=== PATIENT | female | born 1990 | race Caucasian/White ===

== ENCOUNTER 2020-05-06 11:30 | Inpatient (IN) | payer BC ==
[2020-05-06] MEDS ORDERED: Tranexamic Acid 1,000 MG in Sodium Chloride 0.9% 100 ML IV PRN (13:02)
[2020-05-06] MEDS ORDERED: Methylergonovine 0.2 MG/1 ML Amp IM PRN (13:02)
[2020-05-06] MEDS ORDERED: Sodium Chloride 0.9% 10 ML SDV IV PRN (13:02)
[2020-05-06] MEDS ORDERED: Misoprostol 200 MCG Tab PO PRN (13:02)
[2020-05-06] MEDS ORDERED: Nalbuphine 10 MG/1 ML Vial IVPUSH PRN (13:02)
[2020-05-06] MEDS ORDERED: Lidocaine 1% 50 ML MDV INJECT PRN (13:02)
[2020-05-06] MEDS ORDERED: Water For Irrigation,Sterile 1,000 ML Container IRR PRN (13:02)
[2020-05-06] MEDS ORDERED: Sodium Chloride 0.9% 2.5 ML Syringe FLUSH PRN (13:02)
[2020-05-06] MEDS ORDERED: Sodium Chloride 0.9% 10 ML Syringe FLUSH PRN (13:02)
[2020-05-06] MEDS ORDERED: Carboprost Tromethamine 250 MCG/1 ML Amp IM PRN (13:02)
[2020-05-06] MEDS ORDERED: Butorphanol 1 MG/ML SDV IVPUSH PRN (13:02)
[2020-05-06] MEDS ORDERED: Oxytocin/0.9 % Sodium Chloride 30 UNIT/500 ML BAG IV SCH ×2 (13:15→13:45)
[2020-05-06] MEDS ORDERED: Dinoprostone 10 MG Insert VAG PRN (13:34)
[2020-05-06] MEDS ORDERED: Terbutaline 1 MG/ML SDV SUBCUT PRN (13:34)
[2020-05-07] MEDS: Lactated Ringers 1,000 ML IV SCH ×4 (04:25→14:49)
[2020-05-07] MEDS ORDERED: Ropivacaine HCl/PF 100 ML ONE (06:47)
--- NOTE | 2020-05-07 07:18 | PCM.PREANE ---
Preanesthetic Assessment - Anesthesia/Transfusion/Family Hx Anesthesia History: Prior Anesthesia Without Reaction Family History of Anesthesia Reaction: No Transfusion History: No Prior Transfusion(s) - Review of Systems General: No Symptoms Pulmonary: No Symptoms Cardiovascular: No Symptoms Gastrointestinal: No Symptoms Neurological: No Symptoms Other: Reports: None - Physical Assessment Height: 5 ft 7 in Weight: 90.265 kg ASA Class: 2 Mental Status: Alert & Oriented x3 Airway Class: Mallampati = 2 Dentition: Reports: Normal Dentition Thyro-Mental Finger Breadths: 3 Mouth Opening Finger Breadths: 3 ROM/Head Extension: Full Lungs: Clear to Auscultation, Normal Respiratory Effort Cardiovascular: Regular Rate, Regular Rhythm - Lab Values: Laboratory Last Values WBC 11.38 K/uL (4.0-11.0) H 05/06/20 12:45 RBC 4.06 M/uL (4.30-5.90) L 05/06/20 12:45 Hgb 11.9 g/dL (12.0-16.0) L 05/06/20 12:45 Hct 34.7 % (36.0-46.0) L 05/06/20 12:45 MCV 85.5 fL (80.0-98.0) 05/06/20 12:45 MCH 29.3 pg (27.0-32.0) 05/06/20 12:45 MCHC 34.3 g/dL (31.0-37.0) 05/06/20 12:45 RDW Std Deviation 45.5 fl (28.0-62.0) 05/06/20 12:45 RDW Coeff of [place] 15 % (11.0-15.0) 05/06/20 12:45 Plt Count 280 K/uL (150-400) 05/06/20 12:45 MPV 11.30 fL (7.40-12.00) 05/06/20 12:45 Nucleated RBC % 0.0 /100WBC 05/06/20 12:45 Nucleated RBCs # 0 K/uL 05/06/20 12:45 Blood Type A POSITIVE 05/06/20 12:45 Antibody Screen NEGATIVE 05/06/20 12:45 - Allergies Allergies/Adverse Reactions: Allergies Allergy/AdvReac Type Severity Reaction Status Date / Time No Known Allergies Allergy Verified 09/14/16 12:43 - Acknowledgements Anesthesia Type Planned: Epidural Pt an Appropriate Candidate for the Planned Anesthesia: Yes Alternatives and Risks of Anesthesia Discussed w Pt/Guardian: Yes Pt/Guardian Understands and Agrees with Anesthesia Plan: Yes PreAnesthesia Questionnaire HEENT History: Reports: None Cardiovascular History: Reports: None Respiratory History: Reports: None Gastrointestinal History: Reports: None Genitourinary History: Reports: None 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: : 1 Para: 0 LMP (Approximate): Musculoskeletal History: Reports: Fracture Neurological History: Reports: Vertigo Psychiatric History: Reports: Anxiety, Panic Attack Endocrine/Metabolic History: Reports: None Hematologic History: Reports: None Immunologic History: Reports: None Oncologic (Cancer) History: Reports: Leukemia (as a child, no problem in adult art) Dermatologic History: Reports: None - Infectious Disease History Infectious Disease History: Reports: Chicken Pox, Novel Coronavirus, Shingles - Past Surgical History HEENT Surgical History: Reports: Adenoidectomy, LASIK, Tonsillectomy Cardiovascular Surgical History: Reports: Other (See Below) (Hx of Port-a-cath placement/removal) Respiratory Surgical History: Reports: None GI Surgical History: Reports: None Female Surgical History: Reports: None Musculoskeletal Surgical History: Reports: None - SUBSTANCE USE Tobacco Use Status *Q: Former Tobacco User Tobacco Use Within Last Twelve Months: Cigarettes Second Hand Smoke Exposure: No Recreational Drug Use History: No - HOME MEDS Home Medications: Home Meds Escitalopram Oxalate [Lexapro] 5 mg PO DAILY 05/06/20 [History] Famotidine [Pepcid] 20 mg PO DAILY 05/06/20 [History] Vit #76/Iron,Carb/Fa [Pnv 29-1 Tablet] 1 tab PO DAILY 05/06/20 [History] - CURRENT (IN HOUSE) MEDS Current Meds: Current Medications Butorphanol Tartrate (Stadol) 1 mg IVPUSH Q1H PRN PRN Reason: Pain Carboprost Tromethamine (Hemabate Ds) 250 mcg IM ASDIRECTED PRN PRN Reason: Post Hemorrhage Dinoprostone (Cervidil) 10 mg VAG ONETIME PRN PRN Reason: Cervical Ripening Last Admin: 05/06/20 14:58 Dose: 10 mg Documented by: Oxytocin/Sodium Chloride (Oxytocin 30 Unit/500 Ml-Ns) 30 unit in 500 mls @ 500 mls/hr IV TITRATE FAUSTO Tranexamic Acid 1,000 mg/ (Sodium Chloride) 110 mls @ 660 mls/hr IV ONETIME PRN PRN Reason: Bleeding Lactated Ringer's (Ringers, Lactated) 1,000 mls @ 150 mls/hr IV ASDIRECTED FAUSTO Last Admin: 05/07/20 04:25 Dose: 150 mls/hr Documented by: Oxytocin/Sodium Chloride (Oxytocin 30 Unit/500 Ml-Ns) 30 unit in 500 mls @ 2 mls/hr IV TITRATE FAUSTO; Protocol Last Titration: 05/07/20 05:40 Dose: 4 munits/min, 4 mls/hr Documented by: Lidocaine HCl (Xylocaine 1%) 50 ml INJECT ONETIME PRN PRN Reason: Laceration repair Methylergonovine Maleate (Methergine) 0.2 mg IM ASDIRECTED PRN PRN Reason: Post Hemorrhage Misoprostol (Cytotec) 200 mcg PO ONETIME PRN PRN Reason: Post Hemorrhage Nalbuphine HCl (Nubain) 10 mg IVPUSH Q1H PRN PRN Reason: Pain (severe 7-10) Sodium Chloride (Saline Flush) 10 ml FLUSH ASDIRECTED PRN PRN Reason: Keep Vein Open Sodium Chloride (Saline Flush) 2.5 ml FLUSH ASDIRECTED PRN PRN Reason: Keep Vein Open Sodium Chloride (Normal Saline) 10 ml IV ASDIRECTED PRN PRN Reason: IV Use Sterile Water (Sterile Water For Irrigation) 1,000 ml IRR ASDIRECTED PRN PRN Reason: delivery Terbutaline Sulfate (Brethine) 0.25 mg SUBCUT ASDIRECTED PRN PRN Reason: Tacysystole Discontinued Medications Ropivacaine (Naropin 0.2%) Confirm Administered Dose 100 mls @ as directed .ROUTE .[facility]-MED ONE Stop: 05/07/20 06:48
[2020-05-07] MEDS ORDERED: Bupivacaine 0.25% 10 ML SDV ONE (07:37)
[2020-05-07] MEDS ORDERED: Ondansetron 4 MG/2 ML SDV IVPUSH PRN (07:40)
[2020-05-07] MEDS ORDERED: Bupivacaine 0.5% 10 ML SDV ONE ×2 (08:55→11:21)
[2020-05-07] MEDS ORDERED: fentaNYL 100 MCG/2 ML SDV ONE (08:55)
[2020-05-07] MEDS ORDERED: Sodium Chloride 0.9% 1,000 ML IRR SCH (11:15)
[2020-05-07] MEDS ORDERED: Benzocaine/Menthol 20%-0.5% Spray 78 GM Cannister TOP PRN (18:09)
[2020-05-07] MEDS ORDERED: Bisacodyl 10 MG Supp RECTAL PRN (18:09)
[2020-05-07] MEDS ORDERED: Docusate Sodium 100 MG Cap PO PRN (18:09)
[2020-05-07] MEDS ORDERED: Witch Hazel Medicated Pads 40/Jar TOP PRN (18:09)
[2020-05-07] MEDS ORDERED: Lanolin 100% Cream 7 GM Tube TOP PRN (18:09)
[2020-05-07] MEDS ORDERED: oxyCODONE 5 MG Tab PO PRN (18:09)
--- NOTE | 2020-05-07 18:18 | PCM.DEL ---
<Beatrice Mendoza - Last Filed: 05/07/20 18:09> L & D Note - General Info Date of Service: 05/07/20 Mother's Due Date: 05/01/20 - Delivery Note Labor: Induced by ARM, Induced by Oxytocin Cervical Ripening Method: Prostaglandin E2 Delivery Outcome: Livebirth Delivery Method: Spontaneous Vaginal Delivery-Single Presentation: Left Occiput Anterior (ROSSANA) Nuchal Cord: Present, Reduced Anesthesia Type: Epidural, Local, Pudendal Anesthetic: Lidocaine (Xylocaine) 1% Plain Local Anesthetic Volume: Other (30) Amniotic Fluid Description: Meconium Stained (terminal meconium) Laceration: 2nd Degree, Perineal Suture type: Vicryl Suture size: 2-0 Placenta: Intact, Spontaneous Cord: 3 Vessels Estimated Blood Loss: 350 Resuscitation Needed: Yes [place]: Suctioned, Bulb Syringe, Stimulated, Warmed Score 1 min: 6 Score 5 min: 9 - General Info Date of Service: 05/07/20 Functional Status: Reports: Pain Controlled - Review of Systems General: Reports: No Symptoms HEENT: Reports: No Symptoms Pulmonary: Reports: No Symptoms Cardiovascular: Reports: No Symptoms Gastrointestinal: Reports: No Symptoms Genitourinary: Reports: No Symptoms Musculoskeletal: Reports: No Symptoms Skin: Reports: No Symptoms Neurological: Reports: No Symptoms Psychiatric: Reports: No Symptoms - Patient Data Weight - Most Recent: 90.265 kg Med Orders - Current: Current Medications Butorphanol Tartrate (Stadol) 1 mg IVPUSH Q1H PRN PRN Reason: Pain Carboprost Tromethamine (Hemabate Ds) 250 mcg IM ASDIRECTED PRN PRN Reason: Post Hemorrhage Dinoprostone (Cervidil) 10 mg VAG ONETIME PRN PRN Reason: Cervical Ripening Last Admin: 05/06/20 14:58 Dose: 10 mg Documented by: Sodium Chloride (Normal Saline) 1,000 mls @ 500 mls/hr IRR ASDIRECTED FAUSTO Last Infusion: 05/07/20 11:50 Dose: 250 mls/hr Documented by: Oxytocin/Sodium Chloride (Oxytocin 30 Unit/500 Ml-Ns) 30 unit in 500 mls @ 500 mls/hr IV TITRATE FAUSTO Tranexamic Acid 1,000 mg/ (Sodium Chloride) 110 mls @ 660 mls/hr IV ONETIME PRN PRN Reason: Bleeding Lactated Ringer's (Ringers, Lactated) 1,000 mls @ 150 mls/hr IV ASDIRECTED FAUSTO Last Admin: 05/07/20 14:49 Dose: 150 mls/hr Documented by: Oxytocin/Sodium Chloride (Oxytocin 30 Unit/500 Ml-Ns) 30 unit in 500 mls @ 2 mls/hr IV TITRATE FAUSTO; Protocol Last Titration: 05/07/20 14:03 Dose: 4 munits/min, 4 mls/hr Documented by: Lidocaine HCl (Xylocaine 1%) 50 ml INJECT ONETIME PRN PRN Reason: Laceration repair Methylergonovine Maleate (Methergine) 0.2 mg IM ASDIRECTED PRN PRN Reason: Post Hemorrhage Misoprostol (Cytotec) 200 mcg PO ONETIME PRN PRN Reason: Post Hemorrhage Nalbuphine HCl (Nubain) 10 mg IVPUSH Q1H PRN PRN Reason: Pain (severe 7-10) Ondansetron HCl (Zofran) 4 mg IVPUSH Q6H PRN PRN Reason: Nausea/Vomiting Last Admin: 05/07/20 09:17 Dose: 4 mg Documented by: Sodium Chloride (Saline Flush) 10 ml FLUSH ASDIRECTED PRN PRN Reason: Keep Vein Open Sodium Chloride (Saline Flush) 2.5 ml FLUSH ASDIRECTED PRN PRN Reason: Keep Vein Open Sodium Chloride (Normal Saline) 10 ml IV ASDIRECTED PRN PRN Reason: IV Use Sterile Water (Sterile Water For Irrigation) 1,000 ml IRR ASDIRECTED PRN PRN Reason: delivery Terbutaline Sulfate (Brethine) 0.25 mg SUBCUT ASDIRECTED PRN PRN Reason: Tacysystole Discontinued Medications Bupivacaine HCl (Sensorcaine-Mpf 0.25%) Confirm Administered Dose 10 ml .ROUTE .STK-MED ONE Stop: 05/07/20 07:38 Bupivacaine HCl (Sensorcaine-Mpf 0.5%) Confirm Administered Dose 10 ml .ROUTE .STK-MED ONE Stop: 05/07/20 08:56 Bupivacaine HCl (Sensorcaine-Mpf 0.5%) Confirm Administered Dose 10 ml .ROUTE .STK-MED ONE Stop: 05/07/20 11:22 Fentanyl (Sublimaze) Confirm Administered Dose 100 mcg .ROUTE .STK-MED ONE Stop: 05/07/20 08:56 Ropivacaine (Naropin 0.2%) Confirm Administered Dose 100 mls @ as directed .ROUTE .STK-MED ONE Stop: 05/07/20 06:48 Last Admin: 05/07/20 07:44 Dose: Not Given Documented by: Fentanyl/Bupivacaine HCl (Ridikrbz-Tesxi-Jq 2 Mcg/Ml-0.125%) Confirm Administered Dose 100 mls @ as directed .ROUTE .STK-MED ONE Stop: 05/07/20 16:17 - Exam General: Alert, Oriented HEENT: Pupils Equal, Pupils Reactive, EOMI, Mucous Membr. Moist/[place] Neck: Supple Lungs: Clear to Auscultation, Normal Respiratory Effort Cardiovascular: Regular Rate, Regular Rhythm GI/Abdominal Exam: Soft, No Organomegaly, No Distention, No Mass, Other (appropriately tender) (Female) Exam: Other (2nd degree perineal laceration repaired) Back Exam: Normal Inspection, Full Range of Motion Extremities: Normal Inspection, Normal Range of Motion, Non-Tender, No Pedal Edema, Normal Capillary Refill Skin: Warm, Dry, Intact Wound/Incisions: Healing Well Neurological: No New Focal Deficit Psy/Mental Status: Alert, Normal Affect, Normal Mood - Problem List & Annotations (1) Vaginal delivery SNOMED Code(s): 857169354 Code(s): O80 - ENCOUNTER FOR FULL-TERM UNCOMPLICATED DELIVERY Status: Acute Current Visit: Yes Onset Date: ~05/07/20 - Problem List Review Problem List Initiated/Reviewed/Updated: Yes - Assessment Assessment:: 40+6 week , now , induced for post dates and oligohydramnios delivered viable male , apgars 6 & 9. Cervidil placed 05/06/20 with progression to pitocin and AROM and cervical dilation to complete. Double nuchal cord was present and successfully reduced. 2nd degree perineal laceration present and repaired with 2-0 vicryl. Mom and baby both in stable condition. - Plan Plan:: 1. Routine pp cares <Meme Wiley - Last Filed: 05/07/20 18:27> L & D Note - Delivery Note Nuchal Cord: Present (x2) Amniotic Fluid Description: Meconium Stained - Patient Data Lab Results Last 24 Hours: Laboratory Results - last 24 hr 05/07/20 05/07/20 Range/Units 17:38 17:38 Cord ABG pH 7.348 (7.18-7.38) Cord ABG Base Excess -8 (-10--2) Cord VBG pH 7.266 (7.25-7.45) Cord VBG Base Excess -8 (-10--2) Med Orders - Current: Current Medications Acetaminophen (Tylenol Extra Strength) 1,000 mg PO Q6H PRN PRN Reason: Pain Benzocaine/Menthol (Dermoplast Pain Relief 20%-0.5% [place]) 78 gm TOP ASDIRECTED PRN PRN Reason: Perineal Comfort Measure Bisacodyl (Dulcolax) 10 mg RECTAL ONETIME PRN PRN Reason: Constipation Butorphanol Tartrate (Stadol) 1 mg IVPUSH Q1H PRN PRN Reason: Pain Carboprost Tromethamine (Hemabate Ds) 250 mcg IM ASDIRECTED PRN PRN Reason: Post Hemorrhage Dinoprostone (Cervidil) 10 mg VAG ONETIME PRN PRN Reason: Cervical Ripening Last Admin: 05/06/20 14:58 Dose: 10 mg Documented by: Docusate Sodium (Colace) 100 mg PO BID PRN PRN Reason: Constipation Emollient Ointment (Lansinoh Hpa) 0 gm TOP ASDIRECTED PRN PRN Reason: Sore Nipples Escitalopram Oxalate (Lexapro) 5 mg PO DAILY FAUSTO Famotidine (Pepcid) 20 mg PO DAILY FAUSTO Sodium Chloride (Normal Saline) 1,000 mls @ 500 mls/hr IRR ASDIRECTED [facility] Last Infusion: 05/07/20 11:50 Dose: 250 mls/hr Documented by: Oxytocin/Sodium Chloride (Oxytocin 30 Unit/500 Ml-Ns) 30 unit in 500 mls @ 500 mls/hr IV TITRATE FAUSTO Tranexamic Acid 1,000 mg/ (Sodium Chloride) 110 mls @ 660 mls/hr IV ONETIME PRN PRN Reason: Bleeding Lactated Ringer's (Ringers, Lactated) 1,000 mls @ 150 mls/hr IV ASDIRECTED [facility] Last Admin: 05/07/20 14:49 Dose: 150 mls/hr Documented by: Oxytocin/Sodium Chloride (Oxytocin 30 Unit/500 Ml-Ns) 30 unit in 500 mls @ 2 mls/hr IV TITRATE FAUSTO; Protocol Last Titration: 05/07/20 14:03 Dose: 4 munits/min, 4 mls/hr Documented by: Ibuprofen (Motrin) 800 mg PO Q8H PRN PRN Reason: Pain Lidocaine HCl (Xylocaine 1%) 50 ml INJECT ONETIME PRN PRN Reason: Laceration repair Methylergonovine Maleate (Methergine) 0.2 mg IM ASDIRECTED PRN PRN Reason: Post Hemorrhage Misoprostol (Cytotec) 200 mcg PO ONETIME PRN PRN Reason: Post Hemorrhage Nalbuphine HCl (Nubain) 10 mg IVPUSH Q1H PRN PRN Reason: Pain (severe 7-10) Ondansetron HCl (Zofran) 4 mg IVPUSH Q6H PRN PRN Reason: Nausea/Vomiting Last Admin: 05/07/20 09:17 Dose: 4 mg Documented by: Oxycodone HCl (Oxycodone) 5 mg PO Q2H PRN PRN Reason: Pain Sodium Chloride (Saline Flush) 10 ml FLUSH ASDIRECTED PRN PRN Reason: Keep Vein Open Sodium Chloride (Saline Flush) 2.5 ml FLUSH ASDIRECTED PRN PRN Reason: Keep Vein Open Sodium Chloride (Normal Saline) 10 ml IV ASDIRECTED PRN PRN Reason: IV Use Sterile Water (Sterile Water For Irrigation) 1,000 ml IRR ASDIRECTED PRN PRN Reason: delivery Terbutaline Sulfate (Brethine) 0.25 mg SUBCUT ASDIRECTED PRN PRN Reason: Tacysystole Witch Vanessa (Tucks) 1 pad TOP ASDIRECTED PRN PRN Reason: comfort care Discontinued Medications Bupivacaine HCl (Sensorcaine-Mpf 0.25%) Confirm Administered Dose 10 ml .ROUTE .STK-MED ONE Stop: 05/07/20 07:38 Bupivacaine HCl (Sensorcaine-Mpf 0.5%) Confirm Administered Dose 10 ml .ROUTE .STK-MED ONE Stop: 05/07/20 08:56 Bupivacaine HCl (Sensorcaine-Mpf 0.5%) Confirm Administered Dose 10 ml .ROUTE .STK-MED ONE Stop: 05/07/20 11:22 Fentanyl (Sublimaze) Confirm Administered Dose 100 mcg .ROUTE .STK-MED ONE Stop: 05/07/20 08:56 Ropivacaine (Naropin 0.2%) Confirm Administered Dose 100 mls @ as directed .ROUTE .STK-MED ONE Stop: 05/07/20 06:48 Last Admin: 05/07/20 07:44 Dose: Not Given Documented by: Fentanyl/Bupivacaine HCl (Pwxmyefb-Kaclx-Hm 2 Mcg/Ml-0.125%) Confirm Administered Dose 100 mls @ as directed .ROUTE .STK-MED ONE Stop: 05/07/20 16:17 - Problem List & Annotations (1) Vaginal delivery SNOMED Code(s): 416189612 Code(s): O80 - ENCOUNTER FOR FULL-TERM UNCOMPLICATED DELIVERY Status: Acute Current Visit: Yes Onset Date: ~05/07/20 - My Orders Last 24 Hours: My Active Orders 05/07/20 11:15 Sodium Chloride 0.9% [Normal Saline] 1,000 ml IRR ASDIRECTED 05/07/20 Dinner Regular Diet [DIET] 05/07/20 18:09 Notify Provider Vital Signs [RC] ASDIRECTED Acetaminophen [Tylenol Extra Strength] 1,000 mg PO Q6H PRN Benzocaine/Menthol [Dermoplast Pain Relief 20%-0.5% [place]] 78 gm TOP ASDIRECTED PRN Docusate Sodium [Colace] 100 mg PO BID PRN Ibuprofen [Motrin] 800 mg PO Q8H PRN Lanolin [Lansinoh HPA] See Dose Instructions TOP ASDIRECTED PRN bisacodyL [Dulcolax] 10 mg RECTAL ONETIME PRN oxyCODONE 5 mg PO Q2H PRN witch Vanessa [Tucks] 1 pad TOP ASDIRECTED PRN Breast Pump [WOMSER] Per Unit Routine 05/07/20 18:11 Patient Status [ADT] Routine May Shower [RC] ASDIRECTED Up ad Natividad [RC] ASDIRECTED Vital Signs [RC] PER UNIT ROUTINE Assess Lochia [WOMSER] Per Unit Routine Assess Uterine Involution [WOMSER] Per Unit Routine Peripheral IV Discontinue [OM.PC] Routine 05/07/20 18:12 Ice Therapy [OM.PC] Per Unit Routine Perineal Care [OM.PC] Per Unit Routine Sitz Bath [OM.PC] Per Unit Routine 05/07/20 18:13 Cooling Warming Measures [RC] ASDIRECTED 05/08/20 05:11 HEMOGLOBIN/HEMATOCRIT,HH [HEME] Timed 05/08/20 09:00 Escitalopram [Lexapro] 5 mg PO DAILY Famotidine [Pepcid] 20 mg PO DAILY - Assessment Assessment:: Weight 3120g Pudendal nerve block with 10mL lidocaine bilaterally. I have reviewed and agree with the above.
[2020-05-07] MEDS: Ibuprofen 800 MG Tab PO PRN (21:02)
--- NOTE | 2020-05-08 02:09 | OR ---
SURGEON: Meem Wiley MD DATE OF PROCEDURE: 05/07/2020 PREOPERATIVE DIAGNOSES: 1. A 29-year-old 1, para 0, at 40 weeks and 5 days' gestation. 2. Oligohydramnios. 3. Group B streptococcus negative. 4. COVID positive. 5. left ventricular echogenic focus. POSTOPERATIVE DIAGNOSES: 1. A 29-year-old 1, para 1-0-0-1, at 40 weeks and 6 days' gestation. 2. Oligohydramnios. 3. Group B streptococcus negative. 4. COVID positive. 5. left ventricular echogenic focus. 6. Second-degree perineal laceration. PROCEDURE: 1. Spontaneous vaginal delivery. 2. Repair of second-degree perineal laceration. 3. Bilateral pudendal nerve block. ANESTHESIA: Epidural and local. ESTIMATED BLOOD LOSS: 250 mL. FINDINGS: Live male , cephalic presentation. Nuchal cord x2. scores 6 and 9 at one and five minutes respectively. Weight 3120 g. Second-degree perineal laceration. Three-vessel cord. Intact placenta. INDICATIONS: A 29-year-old G1, P0, who presented at 40 weeks and 5 days' gestation from clinic for induction of labor due to oligohydramnios. She was being monitored due to post due date. Upon presentation, her cervix was found to be 1 cm dilated. Cervidil was placed. After approximately 12 hours, Cervidil was removed, and she was 2 to 3 cm dilated. Pitocin was begun for augmentation of labor. At 3 cm dilated, she underwent artificial rupture of membranes with clear fluid noted. An IUPC was placed. She received an epidural for pain control. She progressed to complete cervical dilation and began pushing. DESCRIPTION OF PROCEDURE: I arrived to the room with the cervix completely dilated and the infant's head at +2 station. The patient was complaining of perineal pain that was not controlled by her epidural. A pudendal nerve block was performed by injecting 10 mL of lidocaine bilaterally at the pudendal nerves, approximately 1 cm proximal and superior to the ischial spines. The patient continued to push with good descent of the head. She then delivered a live male infant. The head was delivered followed quickly by the shoulders and the remainder of the body. Nuchal cord x2 was reduced after delivery of the body. The infant was placed on the maternal abdomen. After approximately 30 seconds, the cord clamped and cut. The infant was taken to the warmer for evaluation by nursing staff. The placenta then delivered intact with a 3-vessel cord. The perineum was inspected, and a second-degree perineal laceration was noted. This was infiltrated with 1% lidocaine, and then repaired to anatomy and hemostasis with 2-0 Vicryl. The fundus was firm below the umbilicus. The patient and infant tolerated the delivery well. [id number] / MODL /[id number] MTDD
[2020-05-08] MEDS: Acetaminophen 500 MG Tab PO PRN ×2 (03:12→13:38)
[2020-05-08] MEDS: Ibuprofen 800 MG Tab PO PRN (08:13)
[2020-05-08] MEDS ORDERED: Famotidine 20 MG Tab PO SCH (09:00)
[2020-05-08] MEDS ORDERED: Escitalopram 10 MG Tab PO SCH (09:00)
--- NOTE | 2020-05-08 09:18 | PCM.PNPP ---
- General Info Date of Service: 05/08/20 Subjective Update: Patient doing very well. Mild cramping, mainly with . Bleeding similar to moderate period. Tolerating oral intake. Functional Status: Reports: Pain Controlled, Tolerating Diet, Ambulating, Urinating - Review of Systems General: Reports: No Symptoms HEENT: Reports: No Symptoms Pulmonary: Reports: No Symptoms Cardiovascular: Reports: No Symptoms Gastrointestinal: Reports: No Symptoms Genitourinary: Reports: No Symptoms Musculoskeletal: Reports: No Symptoms Skin: Reports: No Symptoms Neurological: Reports: No Symptoms Psychiatric: Reports: No Symptoms - Patient Data Vital Signs - Most Recent: Last Vital Signs Temp 36.1 C 05/08/20 08:00 Pulse 87 05/08/20 08:00 Resp 16 05/08/20 08:00 BP 118/61 05/08/20 08:00 Pulse Ox 95 05/08/20 08:00 Weight - Most Recent: 90.265 kg Lab Results - Last 24 Hours: Laboratory Results - last 24 hr 05/07/20 05/07/20 05/08/20 Range/Units 17:38 17:38 06:03 Hgb 10.6 L (12.0-16.0) g/dL Hct 31.1 L (36.0-46.0) % Cord ABG pH 7.348 (7.18-7.38) Cord ABG Base Excess -8 (-10--2) Cord VBG pH 7.266 (7.25-7.45) Cord VBG Base Excess -8 (-10--2) Med Orders - Current: Current Medications Acetaminophen (Tylenol Extra Strength) 1,000 mg PO Q6H PRN PRN Reason: Pain Last Admin: 05/08/20 03:12 Dose: 1,000 mg Documented by: Benzocaine/Menthol (Dermoplast Pain Relief 20%-0.5% [place]) 78 gm TOP ASDIRECTED PRN PRN Reason: Perineal Comfort Measure Last Admin: 05/07/20 21:01 Dose: 1 canister Documented by: Bisacodyl (Dulcolax) 10 mg RECTAL ONETIME PRN PRN Reason: Constipation Butorphanol Tartrate (Stadol) 1 mg IVPUSH Q1H PRN PRN Reason: Pain Carboprost Tromethamine (Hemabate Ds) 250 mcg IM ASDIRECTED PRN PRN Reason: Post Hemorrhage Dinoprostone (Cervidil) 10 mg VAG ONETIME PRN PRN Reason: Cervical Ripening Last Admin: 05/06/20 14:58 Dose: 10 mg Documented by: Docusate Sodium (Colace) 100 mg PO BID PRN PRN Reason: Constipation Last Admin: 05/07/20 21:04 Dose: 100 mg Documented by: Emollient Ointment (Lansinoh Hpa) 0 gm TOP ASDIRECTED PRN PRN Reason: Sore Nipples Last Admin: 05/07/20 21:02 Dose: 7 gm Documented by: Escitalopram Oxalate (Lexapro) 5 mg PO DAILY FAUSTO Famotidine (Pepcid) 20 mg PO DAILY FAUSTO Sodium Chloride (Normal Saline) 1,000 mls @ 500 mls/hr IRR ASDIRECTED FAUSTO Last Infusion: 05/07/20 11:50 Dose: 250 mls/hr Documented by: Oxytocin/Sodium Chloride (Oxytocin 30 Unit/500 Ml-Ns) 30 unit in 500 mls @ 500 mls/hr IV TITRATE FAUSTO Tranexamic Acid 1,000 mg/ (Sodium Chloride) 110 mls @ 660 mls/hr IV ONETIME PRN PRN Reason: Bleeding Lactated Ringer's (Ringers, Lactated) 1,000 mls @ 150 mls/hr IV ASDIRECTED FAUSTO Last Admin: 05/07/20 14:49 Dose: 150 mls/hr Documented by: Oxytocin/Sodium Chloride (Oxytocin 30 Unit/500 Ml-Ns) 30 unit in 500 mls @ 2 mls/hr IV TITRATE FAUSTO; Protocol Last Titration: 05/07/20 17:40 Dose: 500 munits/min, 500 mls/hr Documented by: Ibuprofen (Motrin) 800 mg PO Q8H PRN PRN Reason: Pain Last Admin: 05/08/20 08:13 Dose: 800 mg Documented by: Lidocaine HCl (Xylocaine 1%) 50 ml INJECT ONETIME PRN PRN Reason: Laceration repair Methylergonovine Maleate (Methergine) 0.2 mg IM ASDIRECTED PRN PRN Reason: Post Hemorrhage Misoprostol (Cytotec) 200 mcg PO ONETIME PRN PRN Reason: Post Hemorrhage Nalbuphine HCl (Nubain) 10 mg IVPUSH Q1H PRN PRN Reason: Pain (severe 7-10) Ondansetron HCl (Zofran) 4 mg IVPUSH Q6H PRN PRN Reason: Nausea/Vomiting Last Admin: 05/07/20 09:17 Dose: 4 mg Documented by: Oxycodone HCl (Oxycodone) 5 mg PO Q2H PRN PRN Reason: Pain Sodium Chloride (Saline Flush) 10 ml FLUSH ASDIRECTED PRN PRN Reason: Keep Vein Open Sodium Chloride (Saline Flush) 2.5 ml FLUSH ASDIRECTED PRN PRN Reason: Keep Vein Open Sodium Chloride (Normal Saline) 10 ml IV ASDIRECTED PRN PRN Reason: IV Use Sterile Water (Sterile Water For Irrigation) 1,000 ml IRR ASDIRECTED PRN PRN Reason: delivery Terbutaline Sulfate (Brethine) 0.25 mg SUBCUT ASDIRECTED PRN PRN Reason: Tacysystole Witch Na (Tucks) 1 pad TOP ASDIRECTED PRN PRN Reason: comfort care Last Admin: 05/07/20 21:01 Dose: 1 tub Documented by: Discontinued Medications Bupivacaine HCl (Sensorcaine-Mpf 0.25%) Confirm Administered Dose 10 ml .ROUTE .STK-MED ONE Stop: 05/07/20 07:38 Bupivacaine HCl (Sensorcaine-Mpf 0.5%) Confirm Administered Dose 10 ml .ROUTE .STK-MED ONE Stop: 05/07/20 08:56 Bupivacaine HCl (Sensorcaine-Mpf 0.5%) Confirm Administered Dose 10 ml .ROUTE .STK-MED ONE Stop: 05/07/20 11:22 Fentanyl (Sublimaze) Confirm Administered Dose 100 mcg .ROUTE .STK-MED ONE Stop: 05/07/20 08:56 Ropivacaine (Naropin 0.2%) Confirm Administered Dose 100 mls @ as directed .ROUTE .STK-MED ONE Stop: 05/07/20 06:48 Last Admin: 05/07/20 07:44 Dose: Not Given Documented by: Fentanyl/Bupivacaine HCl (Lvcxzpbe-Noizv-Ni 2 Mcg/Ml-0.125%) Confirm Administered Dose 100 mls @ as directed .ROUTE .STK-MED ONE Stop: 05/07/20 16:17 - Infant Interaction Infant Disposition, : [place] in Room with Family Infant Feeding: Breastfed ; Nursed Well Support Person: - Recovery Exam Fundal Tone: Firm Fundal Level: At Umbilicus Fundal Placement: Midline Lochia Amount: Small Lochia Color: Rubra/Red Other Perinuem Description: 2nd degree laceration, repaired Bladder Status: Voiding Urinary Elimination: Voided - Exam General: Alert, Oriented Neck: Supple Lungs: Normal Respiratory Effort GI/Abdominal Exam: Soft, Non-Tender, No Distention Extremities: No Pedal Edema Skin: Warm, Dry, Intact Neurological: No New Focal Deficit Psy/Mental Status: Alert, Normal Affect, Normal Mood - Problem List & Annotations (1) Vaginal delivery SNOMED Code(s): 602186424 Code(s): O80 - ENCOUNTER FOR FULL-TERM UNCOMPLICATED DELIVERY Status: Acute Current Visit: Yes Onset Date: ~05/07/20 - Problem List Review Problem List Initiated/Reviewed/Updated: Yes - My Orders Last 24 Hours: My Active Orders 05/07/20 11:15 Sodium Chloride 0.9% [Normal Saline] 1,000 ml IRR ASDIRECTED 05/07/20 Dinner Regular Diet [DIET] 05/07/20 18:09 Acetaminophen [Tylenol Extra Strength] 1,000 mg PO Q6H PRN Benzocaine/Menthol [Dermoplast Pain Relief 20%-0.5% [place]] 78 gm TOP ASDIRECTED PRN Docusate Sodium [Colace] 100 mg PO BID PRN Ibuprofen [Motrin] 800 mg PO Q8H PRN Lanolin [Lansinoh HPA] See Dose Instructions TOP ASDIRECTED PRN bisacodyL [Dulcolax] 10 mg RECTAL ONETIME PRN oxyCODONE 5 mg PO Q2H PRN witch Na [Tucks] 1 pad TOP ASDIRECTED PRN Breast Pump [WOMSER] Per Unit Routine 05/07/20 18:11 Patient Status [ADT] Routine May Shower [RC] ASDIRECTED Assess Lochia [WOMSER] Per Unit Routine Assess Uterine Involution [WOMSER] Per Unit Routine Peripheral IV Discontinue [OM.PC] Routine 05/07/20 18:12 Ice Therapy [OM.PC] Per Unit Routine Perineal Care [OM.PC] Per Unit Routine Sitz Bath [OM.PC] Per Unit Routine 05/08/20 09:00 Escitalopram [Lexapro] 5 mg PO DAILY Famotidine [Pepcid] 20 mg PO DAILY 05/08/20 09:15 Ready for Discharge [RC] PER UNIT ROUTINE - Assessment Assessment:: 29yo s/p at 40w6d, PPD#1 - Plan Plan:: Patient desires discharge home today if cleared by [facility]. Reviewed discharge instructions/precautions. Continue Lexapro. Reviewed blues versus depression/anxiety. All questions answered.
--- NOTE | 2020-05-08 13:36 | PCM48HPAN ---
Post Anesthesia Note - EVALUATION WITHIN 48HRS OF ANESTHETIC Vital Signs in Normal Range: Yes Patient Participated in Evaluation: Yes Respiratory Function Stable: Yes Airway Patent: Yes Cardiovascular Function Stable: Yes Hydration Status Stable: Yes Pain Control Satisfactory: Yes Nausea and Vomiting Control Satisfactory: Yes Mental Status Recovered: Yes Vital Signs: Last Vital Signs Temp 36.1 C 05/08/20 08:00 Pulse 87 05/08/20 08:00 Resp 16 05/08/20 08:00 BP 118/61 05/08/20 08:00 Pulse Ox 95 05/08/20 08:00
== END 2020-05-08 19:39 | disposition home or self-care (01) | DRG 560 ==
LOC: MW.OBCHECK 11:30 → MW.OB 13:01 → MW.OBCHECK 13:02 → MW.OB 13:02 → OBSVTOIN 05-07 17:38 → MW.OB 05-07 21:30
PROVIDERS: ADMIT Obstetrics & Gynecology; ATTEND Obstetrics & Gynecology
PROC: 10E0XZZ Delivery of Products of Conception, External Approach (ICD-10-PCS; principal; 2020-05-07)
PROC: 10907ZC Drainage of Amniotic Fluid, Therapeutic from Products of Conception, Via Natural or Artificial Opening (ICD-10-PCS; 2020-05-07)
PROC: 3E0P7VZ Introduction of Hormone into Female Reproductive, Via Natural or Artificial Opening (ICD-10-PCS; 2020-05-07)
PROC: 3E033VJ Introduction of Other Hormone into Peripheral Vein, Percutaneous Approach (ICD-10-PCS; 2020-05-07)
PROC: 0KQM0ZZ Repair Perineum Muscle, Open Approach (ICD-10-PCS; 2020-05-07)
PROC: 3E0R3BZ Introduction of Anesthetic Agent into Spinal Canal, Percutaneous Approach (ICD-10-PCS; 2020-05-07)
DX: O48.0 Post-term pregnancy (principal); O69.81X0 Labor and delivery complicated by cord around neck, without compression, not applicable or unspecified; Z3A.40 40 weeks gestation of pregnancy; Z37.0 Single live birth; O77.0 Labor and delivery complicated by meconium in amniotic fluid; O41.03X0 Oligohydramnios, third trimester, not applicable or unspecified; O70.1 Second degree perineal laceration during delivery
CPT/HCPCS: 36415; 59025; 59409; 82803; 85014; 85018; 85027; 86592; 86850; 86900; 86901; A9270-GY; J2405; J2590; J3010; J3490; J7030; J7120

== ENCOUNTER 2023-01-26 05:10 | Inpatient (IN) | payer BC ==
[2023-01-26] MEDS: Lactated Ringers 1,000 ML IV SCH ×4 (05:25→17:11)
[2023-01-26] MEDS ORDERED: Tranexamic Acid IN NACL,ISO-OS 1,000 MG in Premix Bag 1 BAG IV PRN ×2 (05:44)
[2023-01-26] MEDS ORDERED: Terbutaline 1 MG/ML SDV SUBCUT PRN (05:44)
[2023-01-26] MEDS ORDERED: Methylergonovine 0.2 MG/1 ML Amp IM PRN (05:44)
[2023-01-26] MEDS ORDERED: Sodium Chloride 0.9% 20 ML SDV IV PRN (05:44)
[2023-01-26] MEDS ORDERED: Sodium Chloride 0.9% 10 ML Syringe FLUSH PRN (05:44)
[2023-01-26] MEDS ORDERED: Nalbuphine 10 MG/0.5 ML Syringe IVPUSH PRN (05:44)
[2023-01-26] MEDS ORDERED: Ondansetron 4 MG/2 ML SDV IVPUSH PRN (05:44)
[2023-01-26] MEDS ORDERED: Water For Irrigation,Sterile 1,000 ML Container IRR PRN (05:44)
[2023-01-26] MEDS ORDERED: Carboprost Tromethamine 250 MCG/1 mL Vial IM PRN (05:44)
[2023-01-26] MEDS ORDERED: Sodium Chloride 0.9% 2.5 ML Syringe FLUSH PRN (05:44)
[2023-01-26] MEDS ORDERED: Misoprostol 200 MCG Tab PO PRN (05:44)
[2023-01-26] MEDS ORDERED: Lidocaine 1% 50 ML MDV INJECT PRN (05:44)
[2023-01-26] MEDS ORDERED: Oxytocin/0.9 % Sodium Chloride 30 UNIT/500 ML BAG IV SCH ×2 (05:45)
[2023-01-26 06:06] LABS: HEMOGLOBIN 10.8 g/dL (12.0-16.0); MEAN CORPUSCULAR HEMOGLOBIN 26.6 pg (28.0-32.0); MEAN CORPUSCULAR HGB CONC 33.8 g/dL (32.0-36.0); MEAN CORPUSCULAR VOLUME 78.8 fL (83.0-99.0); MEAN PLATELET VOLUME 10.9 fL (9.4-12.3); PLATELET COUNT,PLT 247 K/uL (150-400); RED BLOOD CELL COUNT 4.06 M/uL (4.10-5.30); WHITE BLOOD CELL COUNT,WBC 8.83 K/uL (3.9-11.3)
[2023-01-26] MEDS ORDERED: Ropivacaine/PF 400 MG/200 ML PCA ONE (12:51)
[2023-01-26] MEDS ORDERED: Bupivacaine 0.5% 10 ML SDV ONE (12:51)
[2023-01-26] MEDS: Phenylephrine 1% 10 MG/ML SDV IV PRN ×3 (14:15→14:55)
[2023-01-26] MEDS ORDERED: oxyCODONE 5 MG Tab PO PRN (18:24)
[2023-01-26] MEDS ORDERED: Lanolin 100% Cream 7 GM Tube TOP PRN (18:24)
[2023-01-26] MEDS ORDERED: Bisacodyl 10 MG Supp RECTAL PRN (18:24)
[2023-01-26] MEDS ORDERED: Witch Hazel Medicated Pads 40/Jar TOP PRN (18:24)
[2023-01-26] MEDS ORDERED: Docusate Sodium 100 MG Cap PO PRN (18:24)
[2023-01-26] MEDS ORDERED: Benzocaine/Menthol 20%-0.5% Spray 78 GM Cannister TOP PRN (18:24)
[2023-01-26 19:05] LABS: PH,UMBILICAL ARTERIAL 7.171 (7.18-7.38); PH,UMBILICAL VENOUS 7.317 (7.25-7.45)
[2023-01-26] MEDS: Ibuprofen 800 MG Tab PO PRN (19:08)
[2023-01-26] MEDS: Acetaminophen 500 MG Tab PO PRN (19:51)
[2023-01-27] MEDS: Acetaminophen 500 MG Tab PO PRN ×2 (00:59→10:44)
[2023-01-27 07:00] LABS: HEMATOCRIT 29.3 % (37.0-47.0)
[2023-01-27] MEDS: Ibuprofen 800 MG Tab PO PRN ×2 (07:34→14:02)
== END 2023-01-27 19:39 | disposition home or self-care (01) | DRG 560 ==
LOC: UNDOADMOB 05:10 → MW.OB 05:10 → OBSVTOIN 18:24 → MW.OB 20:50
PROVIDERS: ADMIT Obstetrics & Gynecology; ATTEND Obstetrics & Gynecology
PROC: 10E0XZZ Delivery of Products of Conception, External Approach (ICD-10-PCS; principal; 2023-01-26)
PROC: 0HQ9XZZ Repair Perineum Skin, External Approach (ICD-10-PCS; 2023-01-26)
PROC: 3E033VJ Introduction of Other Hormone into Peripheral Vein, Percutaneous Approach (ICD-10-PCS; 2023-01-26)
PROC: 3E033XZ Introduction of Vasopressor into Peripheral Vein, Percutaneous Approach (ICD-10-PCS; 2023-01-26)
PROC: 3E0R3BZ Introduction of Anesthetic Agent into Spinal Canal, Percutaneous Approach (ICD-10-PCS; 2023-01-26)
PROC: 00HU33Z Insertion of Infusion Device into Spinal Canal, Percutaneous Approach (ICD-10-PCS; 2023-01-26)
DX: O70.0 First degree perineal laceration during delivery (principal); Z37.0 Single live birth; O69.81X0 Labor and delivery complicated by cord around neck, without compression, not applicable or unspecified; O26.53 Maternal hypotension syndrome, third trimester; Z3A.39 39 weeks gestation of pregnancy; Z90.89 Acquired absence of other organs; Z86.16 Personal history of COVID-19; Z85.6 Personal history of leukemia
CPT/HCPCS: 36415; 51702; 59025; 59409; 82803; 85014; 85018; 85027; 86592; 86850; 86900; 86901; A9270-GY; J2371; J2405; J2590; J2795; J7120; S0020

== ENCOUNTER 2024-10-08 08:29 | Emergency (ER) | payer BC | END 2024-10-08 09:29 | disposition home or self-care (01) | LOC: MW.ED 08:29 | DX: S93.402A Sprain of unspecified ligament of left ankle, initial encounter (principal); Z75.3 Unavailability and inaccessibility of health-care facilities; Z79.899 Other long term (current) drug therapy; X50.1XXA Overexertion from prolonged static or awkward postures, initial encounter; Y93.89 Activity, other specified | CPT/HCPCS: 73610; 73620; 99283; A9270; 99282 ==